=== PATIENT | female | born 2000 | race Caucasian/White ===

== ENCOUNTER 2025-06-25 14:19 | Inpatient (IN) | payer MEDICAID ==
[~2025-06-25] VITALS: Ht 149.9 cm; Wt 48.8 kg
[~2025-06-25 14:19] MED LIST: LITH300C3 PO
[2025-06-25 14:37] LABS: COVID AG,FIA SOURCE NASAL SWAB
[2025-06-25 14:56] LABS: SARS-COV2 (COVID) ANTIGEN,FIA Negative (Negative)
[2025-06-25 15:13] LABS: PLATELET COUNT (AUTO) 176 K/uL (150-450); RED BLOOD CELL COUNT(AUTO) 4.45 MIL/uL (4.00-5.20); RED CELL DISTRIBUTION WIDTH 13.4 % (11.5-14.5); WHITE BLOOD COUNT (AUTO) 6.9 K/uL (4.5-11.0)
[2025-06-25 15:19] LABS: CALCIUM, TOTAL 9.7 mg/dL (8.8-10.5); CREATININE 0.82 mg/dL (0.60-1.30); GLOMERULAR FILTR. RATE CALC > 60 mL/min (>60); GLUCOSE,RANDOM 101 mg/dL (70-110); SODIUM SERUM 142 mmol/L (136-145); UREA NITROGEN, BLOOD 11 mg/dL (7-18)
[2025-06-25] MEDS: LORazepam 2 MG/ML VIAL IM ONE (15:59)
[2025-06-25] MEDS: ZOLPIDEM TARTRATE 10 MG TABLET PO PRN (16:00)
[2025-06-25 22:30] VITALS: BP 110/70; PULSE 85; RESP 18; TEMP 98; O2SAT 99
[2025-06-26 08:25] VITALS: RESP 16
[2025-06-26] MEDS ORDERED: MAG HYDROX/ALUMINUM HYD/SIMETH ES 30 ML SUSPENSION UDCUP PO PRN (12:00)
[2025-06-26] MEDS ORDERED: PETROLATUM,WHITE 28 GM JELLY TP PRN (12:00)
[2025-06-26] MEDS ORDERED: BACITRACIN 28 GM OINTMENT TP PRN (12:00)
[2025-06-26] MEDS ORDERED: ONDANSETRON 4 MG TABLET PO PRN (12:00)
[2025-06-26] MEDS ORDERED: DOCUSATE SODIUM 100 MG CAPSULE PO PRN (12:00)
[2025-06-26] MEDS ORDERED: LOPERAMIDE HCL 2 MG CAPSULE PO PRN (12:00)
[2025-06-26] MEDS ORDERED: OMEPRAZOLE 20 MG CAPSULE PO PRN (12:00)
[2025-06-26] MEDS ORDERED: BENZOCAINE/MENTHOL [CEPACOL] LOZENGE PO PRN (12:00)
[2025-06-26] MEDS ORDERED: MAGNESIUM HYDROXIDE SUSPENSION 30 ML UDCUP PO PRN (12:00)
[2025-06-26] MEDS ORDERED: ALBUTEROL SULFATE HFA 90 MCG/PUFF 8 GM INHALER IH PRN (12:00)
[2025-06-26] MEDS: POTASSIUM CHLORIDE 20 MEQ ER TABLET PO ONE (12:24)
[2025-06-27 08:38] VITALS: BP 106/74; PULSE 108; RESP 18; TEMP 99; O2SAT 100
[2025-06-27 09:02] LABS: CHOL/HDL RATIO 2.1 (3.9-5.7); LDL CHOL (CALC.) 70 mg/dL (0-130)
[2025-06-27] MEDS ORDERED: LORazepam 2 MG/ML VIAL ONE (15:37)
[2025-06-27] MEDS: LORazepam 2 MG/ML VIAL IM ONE (15:45)
[2025-06-28 08:27] VITALS: RESP 16
[2025-06-28] MEDS: ACETAMINOPHEN 325 MG TABLET PO PRN (17:17)
[2025-06-28 20:47] VITALS: BP 115/73; PULSE 82; RESP 17; TEMP 98.1; O2SAT 99
[2025-06-29 08:13] VITALS: BP 101/71; PULSE 86; RESP 17; TEMP 97.3; O2SAT 99
[2025-06-29] MEDS: PERMETHRIN 1% 60 ML LOTION TP ONE (16:35)
[2025-06-29 20:30] VITALS: BP 111/62; PULSE 96; RESP 16; TEMP 97.3; O2SAT 98
[2025-06-29 20:50] VITALS: BP 114/68; PULSE 78; RESP 17; TEMP 97.6; O2SAT 98
[2025-06-29] MEDS: IBUPROFEN 600 MG TABLET PO PRN (20:55)
[2025-06-29 21:55] VITALS: RESP 17
[2025-06-30 08:21] VITALS: BP 100/60; PULSE 88; RESP 16; TEMP 97.2; O2SAT 99
[2025-06-30] MEDS ORDERED: LAMO25TA36 PO (10:43)
== END 2025-06-30 18:07 | disposition home or self-care (01) | DRG 751 ==
LOC: EMS 14:19 → B3A 21:23 → UNDODISIN 06-30 09:12
PROVIDERS: ADMIT Psychiatry & Neurology Psychiatry; ATTEND Psychiatry & Neurology Psychiatry
DX: F29 Unspecified psychosis not due to a substance or known physiological condition (principal); F31.30 Bipolar disorder, current episode depressed, mild or moderate severity, unspecified; R45.851 Suicidal ideations; E87.6 Hypokalemia; Z20.822 Contact with and (suspected) exposure to COVID-19; G47.00 Insomnia, unspecified; K59.00 Constipation, unspecified; F41.9 Anxiety disorder, unspecified; Z79.899 Other long term (current) drug therapy; Z91.148 Patient's other noncompliance with medication regimen for other reason
CPT/HCPCS: 80048; 80061; 80178; 83036; 84132; 84703; 85025; G0480; J1200; J1630; J2060